=== PATIENT | female | born 1950 | race American Indian/Alaskan Native ===

== ENCOUNTER 2021-06-14 03:04 | Emergency (ER) | payer SELFPAY ==
[~2021-06-14 03:04] MED LIST: EPINEPHrine 1 MG/10 ML SYRINGE ONE; SODIUM BICARB 8.4% 50 MEQ/50 ML SYRINGE IV ONE
--- NOTE | 2021-06-14 03:12 | Emergency Department Report ---
HPI - General Time Seen by Provider: 06/14/21 03:06 - HPI HPI: This is a 70-year-old female who presents to the emergency department via EMS from a [facility] in cardiac arrest. It is unknown what time the patient was last seen awake and/or alive. EMS says that they were called for cardiac arrest and the [facility] facility was doing CPR upon their arrival and they estimate that it was going on for about 10 minutes prior to EMS arrival. EMS says that they were doing ACLS protocol for about 20 minutes prior to arrival in our emergency department. She was in asystole throughout her EMS course except for 1 brief episode of V. tach in which she received a defibrillation. The patient received 5 rounds of epinephrine. She was intubated and was receiving bag valve ventilation and chest compressions. She had an Accu-Chek of about 150. This patient has not been to our facility previously and EMS says the only known medical history is hypoglycemia. The patient presented to our emergency department and was brought into room #17 where she appears to be in asystole. ED Review of Systems ROS: Stated complaint: CARDIA ARREST Other details as noted in HPI Comment: Unobtainable due to pts medical conditions Physical Exam - Physical Exam Physical Exam: GENERAL: Patient is ill-appearing and unresponsive. HENT: Normocephalic. Atraumatic. EYES: Pupils are fixed and dilated. NECK: Supple. Trachea appears midline. CHEST/LUNGS: There are no spontaneous respirations. HEART/CARDIOVASCULAR: There are no spontaneous heart sounds. ABDOMEN: Abdomen is soft. There is no abdominal distention. SKIN: Skin is cool but dry. NEURO: Unresponsive. Does not withdraw to painful stimuli. Does not follow any commands. MUSCULOSKELETAL: There is no obvious deformity. There is no evidence of acute injury. No palpable femoral or radial pulses. ED Medical Decision Making - Medical Decision Making This patient presents to our emergency department in cardiac arrest. Unknown downtime, but it appears that the patient has been down for at least 30 minutes between CPR being performed by the [facility] and EMS. The patient was in asystole throughout the majority of EMS course except for a very short episode of V. tach in which the patient received a defibrillation, then went back into asystole. She was intubated by EMS and was receiving bag valve ventilation, as well as chest compressions. She received 5 doses of epinephrine over her 5 rounds of ACLS. She had an Accu-Chek of about 150. The patient presented to the emergency department and was brought into room #17. She was placed on the monitor and is once again in asystole and pulseless. We continued ACLS protocol including bag valve ventilation through the endotracheal tube, chest compressions. We did 2 more rounds of ACLS protocol including 2 doses of epinephrine and 1 dose of sodium bicarbonate. Overall the patient has been pulseless for about 40 minutes without any ROSC. Pupils are fixed and dilated. There are no spontaneous heart or breath sounds. Time of called at 3 AM. Critical Care Time: Yes Critical care time in (mins) excluding proc time.: 10 Critical care attestation.: If time is entered above; I have spent that time in minutes in the direct care of this critically ill patient, excluding procedure time. Critical care time was spent on this patient in doing her initial evaluation, supervision of ACLS protocol and notification of the patient's family. Critical Care Time: 10 minutes ED Disposition Clinical Impression: Cardiac arrest, Asystole Acute respiratory failure Qualifiers: Respiratory failure complication: unspecified whether with hypoxia or hypercapnia Qualified Code(s): J96.00 - Acute respiratory failure, unspecified whether with hypoxia or hypercapnia Disposition: 20 Is pt being admited?: No Time of Disposition: 04:25
== END 2021-06-14 05:00 ==
LOC: ED 03:04
DX: I46.9 Cardiac arrest, cause unspecified (principal); J96.00 Acute respiratory failure, unspecified whether with hypoxia or hypercapnia
CPT/HCPCS: 92950; 99285; J0171